=== PATIENT | male | born 1995 | race Caucasian/White ===

== ENCOUNTER 2020-08-21 18:24 | Emergency (ER) | payer OTHER ==
[~2020-08-21] VITALS: Ht 172.7 cm; Wt 70.8 kg
[2020-08-21 18:43] VITALS: BP 110/74
--- NOTE | 2020-08-21 19:10 | NUR ---
Patient discharged to home in stable condition. Written and verbal after care instructions given. Patient verbalizes understanding of instruction.
== END 2020-08-21 19:09 | disposition home or self-care (01) ==
LOC: ER 18:30
DX: K64.4 Residual hemorrhoidal skin tags (principal)